=== PATIENT | female | born 2000 | race Caucasian/White ===

== ENCOUNTER 2019-11-05 12:39 | Emergency (ER) | payer OTHER, SELFPAY ==
--- NOTE | ~2019-11-05 | XR_ITS ---
EXAMINATION: XR ankle RT min 3V, XR foot RT min 3V DATE: 11/05/2019 13:15 INDICATION: Pain and swelling at the lateral right foot and ankle post fall TECHNIQUE: 1. Anteroposterior, mortise, additional oblique and lateral view of the right ankle were obtained. 2. Dorsoplantar, two oblique and lateral views of the right foot were obtained. COMPARISON: None. FINDINGS: Minimally displaced intra-articular fracture at the lateral base of the right fifth metatarsal. No ot her fractures identified. Alignment at the right foot and ankle appears otherwise normal. Joint space s are normal. No right ankle joint effusion. Prominent soft tissue swelling along the dorsal lateral aspect of the right midfoot. IMPRESSION: 1. Minimal displaced intra-articular fracture at the lateral base of the right fifth metatarsal. Reviewed, dictated and finalized at location A. IMPRESSION: 1. Minimal displaced intra-articular fracture at the lateral base of the right fifth metatarsal.
--- NOTE | 2019-11-05 12:58 | ED.EXTPRO ---
HPI - Extremity Problem General Chief complaint: Extremity Injury, Lower Stated complaint: possbile broken right foot Source: patient Mode of arrival: ambulatory Limitations: no limitations History of Present Illness HPI Narrative: 19 Y/O female with right foot and ankle pain that she rates at a 9/10 after she was helping family and she rolled he right foot causing severe pain and discomfort. The foot is swollen anteriorly with bruising, has a good pedal pulse and able to wiggle her toes. Feels mild numbness, with no other injuries. Came straight to the ER, did not take anything for pain prior to her arrival. Complaint: extremity pain and extremity swelling Onset (ago): hour(s) Pain Consistency: constant Location: right Severity scale (1-10): 9 Quality: sharp Radiation: none Relieving factors: cold therapy and rest Exacerbating factors: range of motion, weight bearing and walking Associated symptoms: denies other symptoms Related Data Allergies Allergy/AdvReac Type Severity Reaction Status Date / Time Penicillins Allergy Unknown Verified 11/30/16 11:47 Review of Systems Review of Systems: All systems reviewed & are unremarkable except as noted in HPI and below PMFSH Past Medical History Medical History Patient denies medical problems Family History Family History Other Family history of arthritis Hypertension Social History Social History Smoking status: Never smoker Exam Const: General: healthy appearing, no acute distress and alert Orientation/consciousness: patient oriented x3 HENMT: Head: normal to inspection Eyes: Conjunctivae: conjunctivae normal Pupils: Equal, round and reactive pupils present EOM: EOMs intact bilaterally Neck: Neck: normal visual inspection and no lymphadenopathy Chest: Chest palpation & inspection: normal inspection of the chest Resp: Effort & Inspection: normal respiratory effort Auscultation: clear to auscultation bilaterally Cardio: Rate: regular rate Rhythm: regular rhythm GI: GI Palp: Yes Soft to palpation Percussion: Yes normal to percussion : General: Yes no CVA tenderness Back/Spine/Pelvis: Back: no CVA tenderness Skin: General skin exam: normal color Rashes: no rashes Neuro: General: patient oriented x3, moves all extremities and no meningeal signs Extrem: Other: right lateral foot with swelling and bruising with point tenderness with palpation Psych: Mental Status: mental status grossly normal Critical Care Time Critical Care Time Critical Care Time: No
[2019-11-05 12:59] VITALS: BP 141/75; PULSE 107; RESP 18; TEMP 37.4; O2SAT 98
[2019-11-05] MEDS: KETOROLAC (*BKC) 60 MG/2 ML VIAL IM (13:25)
[2019-11-05 14:08] VITALS: RESP 17
== END 2019-11-05 16:08 | disposition home or self-care (01) ==
PROVIDERS: Emergency Provider Emergency Medicine; PCP Physician Assistant
DX: S92.901A Unspecified fracture of right foot, initial encounter for closed fracture (principal); X58.XXXA Exposure to other specified factors, initial encounter
CPT/HCPCS: 73610; 73630; 96372; 99282; 99283; J1885

== ENCOUNTER 2022-01-13 22:07 | Emergency (ER) | payer OTHER, SELFPAY ==
--- NOTE | ~2022-01-13 | XR_ITS ---
XR ankle RT min 3V DATE: 01/13/2022 22:55 INDICATION: Fall, twisting ankle. Lateral swelling. Patient heard a pop. TECHNIQUE: 3 views COMPARISON: None FINDINGS: No fracture or dislocation of the ankle or disruption of the ankle mortise. No periosteal r eaction or bone destruction. There is minimal soft tissue swelling. IMPRESSION: No significant radiographic abnormality Reviewed, dictated and finalized at location A.
--- NOTE | ~2022-01-13 | XR_ITS ---
XR foot RT min 3V DATE: 01/13/2022 22:56 INDICATION: Fall, twisting ankle and foot. Lateral pain and swelling. Patient heard a pop. TECHNIQUE: 3 views COMPARISON: None FINDINGS: There is focal soft tissue swelling laterally over the base of the fifth metatarsal bone. T here are subtle small calcific or bony densities are noted at the lateral aspect of the base of the f ifth metatarsal bone. Consider possible small cortical avulsion fractures. Otherwise no fracture or dislocation, periosteal reaction or bone destruction is detected. IMPRESSION: Soft tissue swelling over the lateral aspect of the base of the fifth metatarsal bone. Po ssible very small cortical avulsion fractures of uncertain age at the lateral base of the fifth metat arsal bone. Reviewed, dictated and finalized at location A. IMPRESSION: Soft tissue swelling over the lateral aspect of the base of the fif th metatarsal bone. Possible very small cortical avulsion fractures of uncertai n age at the lateral base of the fifth metatarsal bone.
[2022-01-13 22:15] VITALS: BP 134/87; PULSE 115; RESP 18; TEMP 36.6; O2SAT 97
--- NOTE | 2022-01-13 22:22 | ED.LOWEXIN ---
HPI - Extremity Injury (Lower) General Chief Complaint: Extremity Injury, Lower Stated Complaint: right foot pain Time Seen by Provider: 01/13/22 22:22 Source: patient Mode of arrival: wheelchair History of Present Illness HPI Narrative: 21-year-old female with a history of hypertension, dyslipidemia previous fracture base of right metatarsal bone in 2019 fell today and presents to the ER -- pain right ankle -- pain and swelling over the right midfoot unable to bear weight no head injury or loss of consciousness. No other injuries. MD complaint: ankle injury and foot injury Onset (ago): minute(s) ( 30 minutes ago) Injury: Right: ankle and foot Type of Injury: blunt Place: home Severity: severe Relieving factors: nothing Exacerbating factors: movement Context: fall Other symptoms: none Related Data Home Medications Medication Instructions Recorded Confirmed lisinopril 10 mg tablet 10 mg PO DAILY 11/05/19 01/13/22 norgestimate-ethinyl estradiol 1 tablet PO DAILY 11/05/19 01/13/22 0.18 mg/0.215mg/0.25mg-35 mcg(28)tablet (Tri-Previfem (28)) Allergies Allergy/AdvReac Type Severity Reaction Status Date / Time Penicillins Allergy Unknown Unknown Verified 01/13/22 22:26 Review of Systems Review of Systems: All systems reviewed & are unremarkable except as noted in HPI and below Constitutional: Constitutional: Reports as per HPI and Reports no additional constitutional complaints Eyes: Eyes: Reports as per HPI and Reports no additional eye complaints ENT: Reports system reviewed and no additional complaints, except as documented and Reports as per HPI Cardiovascular: Cardiovascular: Reports as per HPI and Reports no additional cardiovascular complaints Respiratory: Respiratory: Reports as per HPI and Reports no additional respiratory complaints Gastrointestinal: Gastrointestinal: Reports as per HPI and Reports no additional gastrointestinal complaints Genitourinary: Genitourinary: Reports no additional female genitourinary complaints and Reports as per HPI Musculoskeletal: Musculoskeletal: Reports no additional musculoskeletal complaints and Reports as per HPI Comments: right foot and ankle pain. 2 cm swelling over the right midfoot Integumentary/Breasts: Skin/Breast: Reports system reviewed and no additional complaints, except as docu and Reports as per HPI Neurologic: Reports system reviewed and no additional complaints, except as documented and Reports as per HPI Psychiatric: Psychiatric: Reports no additional psychiatric complaints and Reports as per HPI Endocrine: Endocrine: Reports no additional endocrine complaints and Reports as per HPI Hematologic/Lymphatic: Hematologic/Lymphatic: Reports no additional hematologic/lymphatic complaints and Reports as per HPI Allergic/Immunologic: Allergic/Immunologic: Reports no additional allergic/immunologic complaints and Reports as per HPI [facility] Past Medical History Medical History (Updated 01/13/22 @ 23:03 by Jason Paredes MD) Patient denies medical problems Family History Family History Other Family history of arthritis Hypertension Social History Social History Smoking status: Never smoker Exam Const: General: healthy appearing Nutritional Appearance: well nourished Orientation/consciousness: patient oriented x3 Limitations: no limitations HENMT: Head: normal to inspection Ears: external ears normal General nose exam: Normal external nose present Face and sinus: normal facial exam Mouth: Yes Normal oral and palatal mucosa present Throat: posterior oropharynx normal Eyes: Conjunctivae: conjunctivae normal Pupils: Equal, round and reactive pupils present EOM: EOMs intact bilaterally Direct Ophthalmoscopy: no photophobia Neck: Neck: normal visual inspection and no meningeal signs Chest: Chest palpation &
[2022-01-13 22:33] VITALS: BP 142/68; PULSE 101; RESP 16; O2SAT 98
[2022-01-13] MEDS: ONDANSETRON HCL ODT 4 MG TABLET PO (23:04)
[2022-01-13] MEDS: HYDROmorphone HCL INJ (*CRX) 2 MG/ML VIAL 0.5 MG IM (23:07)
== END 2022-01-13 23:40 | disposition home or self-care (01) ==
PROVIDERS: Emergency Provider Internal Medicine Critical Care Medicine; PCP Physician Assistant
DX: S93.401A Sprain of unspecified ligament of right ankle, initial encounter (principal); S93.601A Unspecified sprain of right foot, initial encounter; W19.XXXA Unspecified fall, initial encounter
CPT/HCPCS: 29515; 73610; 73630; 96372; 99283; A9270; J1170; L4350

== ENCOUNTER 2022-07-10 19:14 | Emergency (ER) | payer OTHER, SELFPAY ==
--- NOTE | ~2022-07-10 | XR_ITS ---
EXAM: XR abdomen/kub 1V DATE: 07/10/2022 19:55 HISTORY: constipation and generalized abdominal pain for 1 week . COMPARISON: None available. FINDINGS: Partially visualized right femoral fixation hardware Clear lung bases. The rectum is dilate d up to 7.2 cm by formed stool, otherwise normal bowel gas pattern. No organomegaly. No abnormal abdo josie calcification. Regional bones and soft tissues normal for age. IMPRESSION: Possible fecal impaction. Reviewed, dictated and finalized at location K. 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
[2022-07-10 19:15] VITALS: BP 152/104; PULSE 108; RESP 18; TEMP 37.1; O2SAT 97
[2022-07-10 19:28] VITALS: BP 152/104; PULSE 106; RESP 12; TEMP 37.1; O2SAT 98
--- NOTE | 2022-07-10 19:56 | ED.ABDPAIN ---
HPI - Abdominal Pain General Chief Complaint: Abdominal Pain Stated Complaint: sharp pains in stomach, no bowel movement for week Time Seen by Provider: 07/10/22 19:23 Source: patient and RN notes reviewed Mode of arrival: ambulatory Limitations: no limitations History of Present Illness HPI narrative: patient states she has been intermittently constipated for the last week. She had a little bowel movement 2 days ago otherwise no bowel movement last 2 days prior that she is had only small results. She began having some abdominal cramping in her lower pelvis approximately 30 minutes prior to arrival. MD elicited complaint: abdominal pain Pertinent past history: constipation Onset (ago): week(s) (1) Pain Consistency: intermittent Location: pelvis Severity: moderate Quality: cramping Radiation: none Migration to: no migration Exacerbating factors: eating Relieving factors: nothing Associated symptoms: nausea Related Data Home Medications Medication Instructions Recorded Confirmed lisinopril 10 mg tablet 10 mg PO DAILY 11/05/19 07/10/22 aripiprazole 10 mg tablet 10 mg PO DAILY 07/10/22 07/10/22 Allergies Allergy/AdvReac Type Severity Reaction Status Date / Time Penicillins Allergy Unknown Unknown Verified 07/10/22 19:26 Review of Systems Review of Systems: All systems reviewed & are unremarkable except as noted in HPI and below Constitutional: Constitutional: Denies chills and Denies fever(s) Gastrointestinal: Gastrointestinal: Denies diarrhea and Denies vomiting PMFSH Past Medical History Medical History (Updated 07/10/22 @ 20:26 by Carlos Cordoba MD) Hypertension Morbid obesity Schizophrenia Surgical History Surgical History (Updated 07/10/22 @ 19:59 by Carlos Cordoba MD) History of bilateral tubal ligation History of orthopedic surgery femur following fracture Family History Family History Other Family history of arthritis Hypertension Social History Social History Smoking status: Never smoker Exam Const: General: healthy appearing, no acute distress and alert Nutritional Appearance: well nourished and obese morbidly obese Orientation/consciousness: patient oriented x3 Limitations: no limitations Other: Female tech in room during examination. HENMT: Head: normal to inspection Ears: external ears normal Eyes: Conjunctivae: conjunctivae normal Pupils: Equal, round and reactive pupils present EOM: EOMs intact bilaterally Neck: Neck: normal visual inspection Resp: Effort & Inspection: normal respiratory effort Auscultation: clear to auscultation bilaterally Cardio: Rate: regular rate Rhythm: regular rhythm GI: GI Palp: Yes Soft to palpation, Yes Tenderness to palpation present (GI) ( Mild diffusely), No Guarding due to palpation present (GI) and No Rebound tenderness present Auscultation: normal bowel sounds Back/Spine/Pelvis: Cervical Spine: cervical ROM normal Thoracic/Lumbar Spine: thoraco-lumbar ROM normal Skin: General skin exam: normal color Rashes: no rashes Neuro: General: patient oriented x3, moves all extremities, no focal motor deficits and CN's II-XI intact bilaterally Speech: normal speech Gait exam (Neuro): Normal gait present Extrem: General: normal to inspection and no clubbing, cyanosis or edema Psych: Mental Status: mental status grossly normal Affect: normal affect Attitude: cooperative Course Course Emergency Course: I offered patient soapsuds enemas verses home and getting magnesium citrate [id number] and a rectal suppository. She initially chose soapsuds enemas but then came out and said she changed her mind would like to go home and try the [id number] and prescription medicine. Vital Signs Vital signs: Vital Signs Temperature 37.1 C 07/10/22 19:15 Pulse Rate 108 H 07/10/22 19:15 Respiratory Rate 18
--- NOTE | 2022-07-10 20:26 | PC.NURSE ---
present in room while Dr. Cordoba did physical exam
[2022-07-10 20:40] VITALS: BP 148/80; PULSE 82; RESP 16; TEMP 36.8; O2SAT 97
== END 2022-07-10 20:50 | disposition home or self-care (01) ==
PROVIDERS: Emergency Provider Emergency Medicine; PCP Physician Assistant
DX: K59.00 Constipation, unspecified (principal); I10 Essential (primary) hypertension; F20.9 Schizophrenia, unspecified; E66.01 Morbid (severe) obesity due to excess calories; Z68.42 Body mass index [BMI] 45.0-49.9, adult
CPT/HCPCS: 74018; 99283

== ENCOUNTER 2022-11-19 17:42 | Emergency (ER) | payer OTHER, SELFPAY ==
--- NOTE | ~2022-11-19 | XR_ITS ---
EXAM: XR ankle RT min 3V, XR foot RT min 3V DATE: 11/19/2022 18:18 (accession [id number]), 11/19/2022 18:17 (accession [id number]) HISTORY: STATUS POST FALL DOWN STEPS; RIGHT LATERAL ANKLE PAIN. . COMPARISON: None available. FINDINGS: Normal mineralization. Enthesopathy at the base of the fifth metatarsal. Small fracture fr agment versus tendon calcification overlying the tuberosity. Otherwise, no acute fracture or dislocat ion. No lytic or blastic lesion. Joint spaces are maintained. No erosion or periosteal change. Soft t issue swelling over the fifth metatarsal base. IMPRESSION: Small peroneal tendon avulsion fracture at the base of fifth metatarsal versus chronic te ndonitis, correlate with point tenderness and history of chronic versus acute pain. Reviewed, dictated and finalized at [facility] K. IMPRESSION: Small peroneal tendon avulsion fracture at the base of fifth metata rsal versus chronic tendonitis, correlate with point tenderness and history of chronic versus acute pain.
[2022-11-19 17:45] VITALS: BP 151/93; PULSE 102; RESP 18; TEMP 36.3; O2SAT 97
--- NOTE | 2022-11-19 17:59 | ED.LOWEXIN ---
HPI - Extremity Injury (Lower) General Chief Complaint: Extremity Injury, Lower Stated Complaint: R foot injury/fall Time Seen by Provider: 11/19/22 17:55 Source: patient Mode of arrival: ambulatory Limitations: no limitations History of Present Illness HPI Narrative: 22-year-old white female missed a step and dropped a couple of feet on the steps and twisted her right ankle and foot. She felt a pop, and has had swelling over the lateral ankle and over the 4th and 5th metatarsals. No other injury Related Data Home Medications Medication Instructions Recorded Confirmed lisinopril 10 mg tablet 10 mg PO DAILY 11/05/19 11/19/22 aripiprazole 10 mg tablet (Abilify) 10 mg PO DAILY 07/10/22 11/19/22 Allergies Allergy/AdvReac Type Severity Reaction Status Date / Time Penicillins Allergy Unknown Hives Verified 11/19/22 17:53 Review of Systems Review of Systems: All systems reviewed & are unremarkable except as noted in HPI and below (HPI) PMFSH Past Medical History Medical History Hypertension Morbid obesity Schizophrenia Surgical History Surgical History History of bilateral tubal ligation History of orthopedic surgery femur following fracture Family History Family History Other Family history of arthritis Hypertension Social History Social History Smoking status: Never smoker Exam Const: General: healthy appearing Nutritional Appearance: obese Orientation/consciousness: patient oriented x3 Limitations: no limitations HENMT: Head: normal to inspection Ears: external ears normal Face and sinus: normal facial exam Eyes: Conjunctivae: conjunctivae normal Pupils: Equal, round and reactive pupils present EOM: EOMs intact bilaterally Neck: Neck: normal visual inspection Resp: Effort & Inspection: normal respiratory effort Skin: General skin exam: normal color Neuro: General: patient oriented x3 Speech: normal speech Gait exam (Neuro): Normal gait present Extrem: General: normal to inspection Other: EXCEPT THERE IS MARKED TENDERNESS ON PALPATION OF THE RIGHT ANKLE OVER THE LATERAL MALLEOLUS, AND THE ANTERIOR AND POSTERIOR TALOFIBULAR LIGAMENTS. PAIN INCREASES ON MOVEMENT OF THE ANKLE. SHE ALSO HAS SOME TENDERNESS OVER THE MEDIAL MALLEOLUS, AND THE POSTERIOR TALAR TIBIAL LIGAMENT. SHE HAS MARKED SWELLING OVER THE PROXIMAL 4TH AND 5TH METATARSALS. THAT AREA IS MARKEDLY TENDER. DISTAL DURAN TARSALS ARE NONTENDER, TOES ARE NONTENDER. DISTAL NEUROVASCULAR IS INTACT Psych: Mental Status: mental status grossly normal Affect: normal affect Attitude: cooperative Course Course Emergency Course: X-RAYS WERE OBTAINED OF THE ANKLE AND FOOT SHOWS A VERY SMALL AVULSION FRACTURE OFF THE BASE OF THE 5TH METATARSAL. JULISSA WRAP WAS APPLIED AND SHE WAS PLACED IN A WALKING BOOT ICE, ELEVATED, IBUPROFEN 600 MG Q.8 NEEDED FOLLOW-UP WITH ORTHOPEDICS AT [facility] IN [place] 1 week Vital Signs Vital signs: Vital Signs Temperature 36.3 C L 11/19/22 17:45 Pulse Rate 102 H 11/19/22 17:45 Respiratory Rate 18 11/19/22 17:45 Blood Pressure 151/93 H 11/19/22 17:45 Pulse Oximetry 97 11/19/22 17:45 Oxygen Delivery Room Air 11/19/22 17:45 Temperature 36.3 C L 11/19/22 17:45 Pulse Rate 102 H 11/19/22 17:45 Respiratory Rate 18 11/19/22 17:45 Blood Pressure 151/93 H 11/19/22 17:45 Pulse Oximetry 97 11/19/22 17:45 Oxygen Delivery Room Air 11/19/22 17:45 Discharge Plan Discharge Clinical Impression: Ankle sprain and strain, Metatarsal bone fracture Patient Disposition: Home, Self-Care Condition: Stable Instructions: Antibiotic Form Additional Instructions: Tylenol as needed for pain ibuprofen 600 mg every 6-8 hours as
[2022-11-19 18:51] VITALS: BP 147/84; PULSE 81; RESP 20; O2SAT 99
== END 2022-11-19 18:56 | disposition home or self-care (01) ==
PROVIDERS: Emergency Provider Emergency Medicine; PCP Physician Assistant
DX: S92.351A Displaced fracture of fifth metatarsal bone, right foot, initial encounter for closed fracture (principal); S93.401A Sprain of unspecified ligament of right ankle, initial encounter; W10.9XXA Fall (on) (from) unspecified stairs and steps, initial encounter; I10 Essential (primary) hypertension; F20.9 Schizophrenia, unspecified; E66.01 Morbid (severe) obesity due to excess calories; Z68.42 Body mass index [BMI] 45.0-49.9, adult
CPT/HCPCS: 73610; 73630; 99284; L2112

== ENCOUNTER 2023-07-04 11:12 | Emergency (ER) | payer OTHER, SELFPAY ==
[2023-07-04 11:15] VITALS: BP 145/93; PULSE 98; RESP 16; TEMP 36.3; O2SAT 98
[2023-07-04] MEDS: ACETAMINOPHEN 500 MG TABLET 1000 MG PO (11:39)
[2023-07-04 11:41] LABS: Appearance Urine Clear (Clear); Bilirubin Urine 1+ (Negative); Blood Urine Negative (Negative); Color Urine Yellow (Yellow); Glucose Urine UA Negative (Negative); Ketones Urine Negative (Negative); Leukocyte Esterase Ur Negative (Negative); Nitrate Urine Negative (Negative); Protein Urine Negative (Negative); Specific Grav Ur 1.025 (1.010-1.020)
[2023-07-04 11:42] LABS: Pregnancy On Board Control Positive; Urine Pregnancy Test Negative
[2023-07-04 11:46] LABS: Add Urine Microscopic? YES; Bacteria Urine Trace /hpf; RBC Urine None seen /hpf (0-2); Squamous Epithelial Cell Urine Moderate /hpf (Few); WBC Urine None seen /hpf (0-3)
--- NOTE | 2023-07-04 11:59 | ED.LOWEXIN ---
HPI - Extremity Injury (Lower) General Chief Complaint: Extremity Injury, Lower Stated Complaint: LEG NUMBNESS Time Seen by Provider: 07/04/23 11:14 Source: patient Mode of arrival: ambulatory Limitations: no limitations History of Present Illness HPI Narrative: this is a 22-year-old female who presents with some sciatic pain radiating her left leg and into her foot with no injury no saddle paresthesias no fever chills currently not having back pain patient states that she did take some Tylenol couple of days ago with minimal relief but has not take anything recently. Otherwise no shortness of breath no chest pain no dysuria. 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 Onset (ago): day(s) Related Data Home Medications Medication Instructions Recorded Confirmed lisinopril 10 mg tablet 10 mg PO DAILY 11/05/19 07/04/23 aripiprazole 10 mg tablet (Abilify) 10 mg PO DAILY 07/10/22 07/04/23 Allergies Allergy/AdvReac Type Severity Reaction Status Date / Time Penicillins Allergy Unknown Hives Verified 07/04/23 11:25 Review of Systems Review of Systems: All systems reviewed & are unremarkable except as noted in HPI and below PMFSH Past Medical History Medical History Hypertension Morbid obesity Schizophrenia Surgical History Surgical History History of bilateral tubal ligation History of orthopedic surgery femur following fracture Family History Family History Other Family history of arthritis Hypertension Social History Social History Smoking status: Never smoker Exam Const: General: healthy appearing, no acute distress and alert Nutritional Appearance: well nourished Limitations: no limitations Resp: Effort & Inspection: normal respiratory effort Auscultation: clear to auscultation bilaterally Cardio: Rate: regular rate Rhythm: regular rhythm GI: GI Palp: Yes Soft to palpation Auscultation: normal bowel sounds Neuro: General: patient oriented x3, moves all extremities, no meningeal signs and no focal motor deficits Extrem: Other: Sciatica radiating down her left leg with a positive straight leg raising test on the left. Course Course Emergency Course: Patient had urinalysis and hCG performed which were both negative, patient received a g of Tylenol and which has helped her pain, will send medication to her local pharmacy and advised patient to follow-up with her primary Vital Signs Vital signs: Vital Signs Temperature 36.3 C L 07/04/23 11:15 Pulse Rate 98 07/04/23 11:15 Respiratory Rate 16 07/04/23 11:15 Blood Pressure 145/93 H 07/04/23 11:15 Pulse Oximetry 98 07/04/23 11:15 Oxygen Delivery Room Air 07/04/23 11:15 Temperature 36.3 C L 07/04/23 11:15 Pulse Rate 98 07/04/23 11:15 Respiratory Rate 16 07/04/23 11:15 Blood Pressure 145/93 H 07/04/23 11:15 Pulse Oximetry 98 07/04/23 11:15 Oxygen Delivery Room Air 07/04/23 11:15 MDM - Extremity Injury (Lower) Lab Data Labs: Lab Results 07/04/23 Range/Units 11:39 Urine Color Yellow (Yellow) Urine Appearance Clear (Clear) Urine pH 6.0 (5.0-8.0) Ur Specific [place] 1.025 H (1.010-1.020) Urine Protein Negative (Negative) Urine Glucose (UA) Negative (Negative) Urine Ketones Negative (Negative) Ur Blood (Man) Negative (Negative) Urine Nitrate Negative (Negative) Urine Bilirubin 1+ H (Negative) Urine Urobilinogen 1.0 (0.2-1.0) mg/dL Ur Leukocyte Esterase Negative (Negative) Urine RBC None seen (0-2) /hpf Urine WBC None seen (0-3) /hpf Ur Squamous Epith Cells Moderate H (Few) /hpf Urine Bacteria Tr
== END 2023-07-04 12:10 | disposition home or self-care (01) ==
PROVIDERS: Emergency Provider Emergency Medicine; PCP Physician Assistant
DX: M54.30 Sciatica, unspecified side (principal); I10 Essential (primary) hypertension; Z79.899 Other long term (current) drug therapy
CPT/HCPCS: 81001; 81025; 99283

== ENCOUNTER 2023-10-30 08:21 | Emergency (ER) | payer OTHER, SELFPAY ==
--- NOTE | ~2023-10-30 | XR_ITS ---
EXAMINATION: [id number] DATE: 10/30/2023 10:15 INDICATION: Left chest pain. TECHNIQUE: A frontal view of the chest and 2 views on 4 radiographs of the left ribs were obtained. COMPARISON: None. FINDINGS: There is no pneumonia, pleural effusion, or pneumothorax. The heart size is normal. IMPRESSION: 1. No rib fracture. Reviewed, dictated and finalized at location A. IMPRESSION: 1. No rib fracture.
[2023-10-30 08:22] VITALS: BP 133/94; PULSE 109; RESP 18; TEMP 37; O2SAT 97
--- NOTE | 2023-10-30 09:19 | ED.CHESTPAIN ---
HPI - Chest Pain General Chief Complaint: Back Pain/Injury Stated Complaint: back pain Source: patient Mode of arrival: ambulatory Limitations: no limitations History of Present Illness HPI narrative: 23-year-old female with a history of schizophrenia,hypertension, dyslipidemia presents to the ER with a 2 day history of -- left posterior chest wall pain. No history of trauma. Chest pain is made worse by coughing or deep breathing -- The patient is a smoker and has had recent cough. No shortness of breath. MD complaint: chest pain Onset (ago): day(s) ( 2 days) Timing of current episode: constant Prior episodes: No Onset: during rest Pain location: posterior Pain radiation: none Severity: moderate Quality: aching and sharp Relieving factors: nothing Exacerbating factors: movement Risk Factors Coronary artery disease risk factors: hyperlipidemia and hypertension Related Data On Oral Contraceptives: No Home Medications Medication Instructions Recorded Confirmed lisinopril 10 mg tablet 10 mg PO DAILY 11/05/19 07/04/23 aripiprazole 10 mg tablet (Abilify) 10 mg PO DAILY 07/10/22 07/04/23 Allergies Allergy/AdvReac Type Severity Reaction Status Date / Time Penicillins Allergy Unknown Hives Verified 07/04/23 11:25 Review of Systems Review of Systems: All systems reviewed & are unremarkable except as noted in HPI and below Constitutional: Constitutional: Reports as per HPI and Reports no additional constitutional complaints Eyes: Eyes: Reports as per HPI and Reports no additional eye complaints ENT: Reports system reviewed and no additional complaints, except as documented and Reports as per HPI Cardiovascular: Cardiovascular: Reports as per HPI and Reports no additional cardiovascular complaints Respiratory: Respiratory: Reports as per HPI and Reports no additional respiratory complaints Comments: right posterior chest wall pain. Pain is over the location of the latissimus dorsi Gastrointestinal: Gastrointestinal: Reports as per HPI and Reports no additional gastrointestinal complaints Genitourinary: Genitourinary: Reports no additional female genitourinary complaints Musculoskeletal: Musculoskeletal: Reports no additional musculoskeletal complaints Comments: posterior chest wall pain which is made worse by deep breathing or coughing Integumentary/Breasts: Skin/Breast: Reports system reviewed and no additional complaints, except as docu and Reports as per HPI Neurologic: Reports system reviewed and no additional complaints, except as documented and Reports as per HPI Psychiatric: Psychiatric: Reports no additional psychiatric complaints and Reports as per HPI Endocrine: Endocrine: Reports no additional endocrine complaints and Reports as per HPI Hematologic/Lymphatic: Hematologic/Lymphatic: Reports no additional hematologic/lymphatic complaints and Reports as per HPI Allergic/Immunologic: Allergic/Immunologic: Reports no additional allergic/immunologic complaints and Reports as per HPI PMFSH Past Medical History Medical History Hypertension Morbid obesity Schizophrenia Surgical History Surgical History History of bilateral tubal ligation History of orthopedic surgery femur following fracture Family History Family History Other Family history of arthritis Hypertension Social History Social History Smoking status: Never smoker Exam Narrative: blood pressure 133/94. Heart rate of 109. Oxygen saturation of 97% on room air with a respiratory rate of 18. Const: General: healthy appearing, no acute distress and alert Nutritional Appearance: well nourished Orientation/consciousness: patient oriented x3 Limitations: no limitations HENMT: Head: no
[2023-10-30 09:39] LABS: Pregnancy On Board Control Positive; Urine Pregnancy Test Negative
[2023-10-30] MEDS: IPRATROPIUM 0.5 MG/ALBUTEROL SULFATE 2.5 MG AMPUL.NEB 3 ML INHALATION (10:38)
[2023-10-30 10:40] VITALS: PULSE 84; RESP 20; O2SAT 98
[2023-10-30] MEDS: KETOROLAC 30 MG/ML VIAL (*BKC) IM (10:40)
[2023-10-30 11:02] VITALS: BP 135/81; PULSE 94; RESP 20; TEMP 36.9; O2SAT 100
== END 2023-10-30 11:02 | disposition home or self-care (01) ==
PROVIDERS: Emergency Provider Internal Medicine Critical Care Medicine; PCP Physician Assistant
DX: R07.89 Other chest pain (principal); J98.01 Acute bronchospasm; I10 Essential (primary) hypertension; E78.5 Hyperlipidemia, unspecified; F20.9 Schizophrenia, unspecified
CPT/HCPCS: 71101; 81025; 94640; 96372; 99283; J1885

== ENCOUNTER 2024-04-12 12:25 | Emergency (ER) | payer OTHER, SELFPAY ==
[2024-04-12] VITALS (22 sets, daily range): BP systolic 113–142; BP diastolic 76–95; PULSE 90–111; RESP 15–22; TEMP 36.5; O2SAT 97–100
--- NOTE | ~2024-04-12 | XR_ITS ---
EXAMINATION: XR chest 1V portable DATE: 04/12/2024 12:52 INDICATION: Chest pain. TECHNIQUE: A single frontal view of the chest was obtained. COMPARISON: Chest single view 03/15/2019 FINDINGS: There is no pneumonia, pleural effusion, or pneumothorax. The heart size is normal. IMPRESSION: 1. No acute cardiopulmonary disease. Reviewed, dictated and finalized at location A.
--- NOTE | 2024-04-12 12:32 | ED.CHESTPAIN ---
HPI - Chest Pain General Chief Complaint: Chest Pain Stated Complaint: short of breathe Time Seen by Provider: 04/12/24 12:31 Source: patient Mode of arrival: ambulatory Limitations: no limitations History of Present Illness HPI narrative: 23-year-old white female complains of chest pain. patient has a history of hypertension schizophrenia posttraumatic stress disorder anxiety and depression. Last night she smoked marijuana around 8:00 p.m. and also she smoked methamphetamine. She also smoked marijuana this morning. She woke up this morning around 730 and took her lisinopril and rest per Jonas's and then around 830 started having retrosternal chest pain has been constant pressure sensation 6 to 7/10 associated with some shortness of breath diaphoresis. She has not had this pain before she did not take any for pain. She felt a little dizzy coming into the emergency department. But is not dizzy now. Denies any swelling lumps or bumps bleeding or bruising weakness she felt numb numb all over her body this morning lasting 3 minutes which comes and goes. Not have any history of heart disease lung disease venous thromboembolism. She is eating and drinking voiding and stooling fine without any nausea vomiting or diarrhea problems walking talking seeing or hearing cough runny nose or any other complaints. Patient denies any alcohol use And she vapes. Related Data Home Medications Medication Instructions Recorded Confirmed lisinopril 10 mg tablet 10 mg PO DAILY 11/05/19 07/04/23 aripiprazole 10 mg tablet (Abilify) 10 mg PO DAILY 07/10/22 07/04/23 Allergies Allergy/AdvReac Type Severity Reaction Status Date / Time Penicillins Allergy Unknown Hives Verified 03/18/24 16:27 Review of Systems Review of Systems: All systems reviewed & are unremarkable except as noted in HPI and below PMFSH Past Medical History Medical History Hypertension Morbid obesity Schizophrenia Surgical History Surgical History History of bilateral tubal ligation History of orthopedic surgery femur following fracture Family History Family History Other Family history of arthritis Hypertension Social History Social History (System 03/18/24 @ 16:27 by Kurt Lynn) Smoking status: Never smoker Exam Narrative: White female patient with no apparent distress.? Head normocephalic, atraumatic.? Eyes conjunctiva pink sclera nonicteric.? Extraocular movements are intact.? Ears externally normal.? Oropharynx is clear with moist mucous membranes without exudates.? Neck is supple nontender no lymphadenopathy.? Back is nontender.? Lungs are clear.? Heart is regular rate and rhythm without murmurs gallops or rubs.? Chest wall nontender. Abdomen is soft and nontender no hepatosplenomegaly or masses no CVA tenderness no abdominal bruits.? Extremities no cyanosis clubbing or edema.? Skin is warm and dry without rashes or lesions.? Neurological patient is alert and oriented x4.? Motor and sensory grossly intact.? Gait is normal. Course Vital Signs Vital signs: Vital Signs Oxygen Delivery Room Air 04/12/24 12:25 Temperature 36.5 C 04/12/24 12:27 Pulse Rate 110 H 04/12/24 15:16 Respiratory Rate 18 04/12/24 15:16 Blood Pressure 129/86 04/12/24 15:15 Pulse Oximetry 99 04/12/24 15:16 Oxygen Delivery Room Air 04/12/24 15:16 MDM - Chest Pain MDM Narrative Medical decision making narrative: Patient was placed in Room # 4 with her History and physical was performed. 23-year-old white female with history of hypertension use meth last night and marijuana also today started having chest pain this morning 5-1/2 hours ago associated with shortness of breath diaphoresis normal chest x-ray per radiologist . Normal lipase magnesium E
--- NOTE | 2024-04-12 12:33 | ECG_ITS ---
Test Date: 2024-04-12 12:41:56 Measurements Intervals [place] Rate: 100 P: 38 WA: 157 QRS: 2 QRSD: 99 T: 20 QT: 316 QTc: 408 Interpretive Statements SINUS TACHYCARDIA WITH OCCASIONAL VENTRICULAR PREMATURE COMPLEXES INCOMPLETE RIGHT BUNDLE BRANCH BLOCK [90+ ms QRS DURATION, TERMINAL R IN V1/V2, 40+ ms S IN I/aVL/V4/V5/V6] No previous ECG available for comparison Electronically Signed On 04-14-2024 11:56:56 CDT by Tanja Alfaro M.D.
[2024-04-12 13:10] LABS: Hemoglobin 15.1 g/dL (12.0-15.0); Mean Corpuscular HGB Conc 35.1 g/dL (32-36); Mean Corpuscular Hemoglobin 31.8 pg (27.0-31.0); Mean Corpuscular Volume 90.5 fL (78.0-102.0); Mean Platelet Volume 9.4 fl (9.2-11.8); Platelet Count Result 327 K/mm3 (150-420); Red Blood Count 4.75 M/mm3 (4.20-5.40); Red Cell Distribution Width 11.6 % (11.6-14.4); White Blood Count 11.5 K/mm3 (4.8-10.8)
[2024-04-12 13:27] LABS: Amphetamine Screen Urine Positive (Negative); Benzodiazepines Screen Urine Negative (Negative); Cannabinoid Screen Urine Positive (Negative); Cocaine Screen Urine Negative (Negative); Methadone Screen Urine Negative (Negative); Opiate Screen Urine Negative (Negative); Phencyclidine Screen Urine Negative (Negative)
[2024-04-12 13:30] LABS: D Dimer 0.27 mg/L (0.19-0.50); Prothrombin Time 10.9 Seconds (9.50-12.1)
[2024-04-12 13:37] LABS: Alanine Aminotransferase 42 U/L (14-59); Albumin Level 3.8 g/dL (3.4-5.0); Alkaline Phosphatase 87 U/L (46-116); Anion Gap 11 mmol/L (4-12); Aspartate Amino Transferase 26 U/L (15-37); Bilirubin,Total 0.6 mg/dL (0.00-1.00); Blood Urea Nitrogen 7 mg/dL (7-18); Calcium 9.5 mg/dL (8.5-10.1); Carbon Dioxide 27 mmol/L (21-32); Chloride 102 mmol/L (98-108); Estimated CRCL calculation 111 ml/min; Estimated Glomerular Filt Rate > 60; Glucose 105 mg/dL (70-99); Magnesium 2.1 mg/dL (1.8-2.4); Osmolality Calculated 288 mOsm/kg (285-295); Potassium 3.7 mmol/L (3.5-5.1); Sodium 140 mmol/L (136-145); Total Protein 7.9 g/dL (6.4-8.2); Troponin I 4.1 ng/L (0.00-60.4)
[2024-04-12 13:38] LABS: Ethanol < 3 mg/dL (0-6); Lipase < 6 U/L (16-77)
[2024-04-12 15:03] LABS: Troponin I 4.3 ng/L (0.00-60.4)
== END 2024-04-12 15:31 | disposition home or self-care (01) ==
PROVIDERS: Emergency Provider Emergency Medicine; PCP Emergency Medicine
DX: R07.89 Other chest pain (principal); F15.10 Other stimulant abuse, uncomplicated; F12.10 Cannabis abuse, uncomplicated; I10 Essential (primary) hypertension; F20.9 Schizophrenia, unspecified
CPT/HCPCS: 36415; 71045; 80053; 80307; 82077; 83690; 83735; 84484; 85027; 85380; 85610; 85730; 93005; 99284

== ENCOUNTER 2024-09-14 19:59 | Emergency (ER) | payer OTHER, SELFPAY ==
[2024-09-14] VITALS (9 sets, daily range): BP systolic 135–157; BP diastolic 80–92; PULSE 87–99; RESP 18; TEMP 35.8–36.5; O2SAT 97–100
--- NOTE | ~2024-09-14 | XR_ITS ---
CHEST RADIOGRAPH CLINICAL HISTORY: CP tonight, no trauma . COMPARISON: 04/12/2024 TECHNIQUE: Single portable view of the chest. FINDINGS The cardiomediastinal silhouette is unremarkable. The lungs are clear. Visualized osseous structures and soft tissues are unremarkable. IMPRESSION: No focal infiltrate or effusion. Reviewed, dictated and finalized at location A.
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
--- OUTSIDE RECORDS SUMMARY | 2024-09-14 20:01 | XMS_ITS | Continuity of Care Document ---
Author Organization [facility] Address [address] [place] [address] Phone Care Team Providers Care Child Care Leader Name Role Phone Zenaida De La Rosa Unavailable Unavailable Allergies, Adverse Reactions, Alerts Substance Reaction Status Criticality PENICILLIN Hives(moderate)Hives(moderate) Active No Information Medications Medication Instructions Dosage Effective Dates (start - stop) Status Comments LISINOPRIL (unknown strength) take 1 tablet by oral route every day Not Available - Active Vitamin D2 1,250 mcg (50,000 unit) capsule - Active SERTRALINE HCL (unknown strength) take 1 tablet by oral route every day Not Available - Active LIPITOR (unknown strength) take 1 tablet by oral route every day Not Available - Active Procedures Procedure Date OFFICE/OUTPATIENT VISIT, [facility] Advance Directives Directive Yes / No Effective Date File Name No Information Encounters Encounter Description Practice Location Reason(s) For Visit Diagnoses Date Provider Providers Copied on Encounter OFFICE/OUTPAT IENT VISIT, [facility], [address] [place] [address], [facility], tel:[phone] Rock TEST (chief complaint) Negative test Rj Etsevez. [address] [place] [address], [facility], . tel:[phone] Family History Family Member Type Diagnosis Age At Onset Maternal grandmother Problem hypertension Paternal grandfather Problem hypertension Mother Problem malignant neoplasm of ovary Payers Payer name Insurance type Covered green party ID Authoriza tion(s) No Information Social History Type Description Quantity Date Captured Comments Alcohol Use Details No Caffeine Use Details coffee Tobacco Use Status Smoking Status Current every day smoker Non-Smoking Tobacco Use Details : No Details Available : No Details Available Sex Female Vital Signs Date / Time: Height Weight BMI Pulse Rate Blood Pressure Temperature Respiratory Rate Body Surface Area Head Circumference Head Circ. Percentile Wt./Sanjeev. Percentile BMI percentile Pulse Ox Inhaled Ox 1:03 PM 63.00 in 126.915 kg (279.80 lbs) 49.5 6 kg/m eter (2) 100 /min 128/72 mm[Hg] 97.90 F 20 /min 96 % 21 % Chief Complaint And Reason For Visit From encounter dated '09/01/2020 13:00'. TEST (chief complaint). Description: Pt presents today requesting a test. Pt states she has not taken an at home test yet. Pt's LMP was beginning of July. Pt states sheis sexually active without protection. Pt states she feels she has gained weight in the last month.Urine test in office is negative. Reason For Referral Reason For Referral No Information History Of Present Illness Encounter Date Complaint History Of Prese nt Illness TEST (comments) As sta neto. Patient denies any other concerns at this time. TEST Pt presents toda y requesting a test. Pt states she has not taken an at home test yet. Pt's LMP was beginning of July. Pt states she is sexually active without protection. Pt states she feels she has gained weight in the last month.Urine test in office is negative. Functional Status Date Functional Assessmen t No Information Instructions Date Instruction Additional Infor luz maria Recommend follow up with OB-POULTRY CUTTER for further concerns about becoming . Follow up with PCP regarding elevated PHQ-9. Denies SI/ HI today. Related to Negative test Assessments Type Assessment Date assessment Negative test 021 impression In office test negativ e. Mental Status Date Cognitive Assessment Orientation - [place] ed to time, place, person, situation. Patient Care Teams Name Effective Dates (start - stop) Status Members No Information
--- OUTSIDE RECORDS SUMMARY | 2024-09-14 20:01 | XMS_ITS | Encounter Summary ---
Author Organization [facility] Address [address] [place] [address] Care Team Providers Care Assembler Tractor Name Role Phone Deng Coffman Primary Care Provider [phone] Paul Jasso MD Primary Care Provider [phone] Sergo Mckeon MD Primary Care Provider [phone] Encounter Details Date Type Department Care Team (Late st Contact Info) Description 12/06/2018 Abstract [facility] CONVERSION [address] [place] [address] , Generic Conversion, Social History Tobacco Use Types Packs/Day Years Used Date Smoking Tobacco: Never Assessed Comments Unknown Sex and Gender Information Value Date Recorded Sex Assigned at Not on file 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 Gender Identity Not on file Sexual Orientation Not on file documented as of this encounter Plan of Treatment Not on file documented as of this encounter Visit Diagnoses Not on filedocumented in this encounter Care Teams Assembler Tractor Relationship Specialty Start Date End Date Deng Coffman PA [address] [place] [phone] PCP - General PHYSICIAN RV REPAIRER 11/09/19 04/17/20 Paul Jasso MD [address] [place] [phone] PCP - General FAMILY PRACTICE 04/18/20 05/23/21 Sergo Mckeon MD [address] [place] [phone] PCP - General FAMILY PRACTICE 05/24/21 documented as of this encounter
--- NOTE | 2024-09-14 20:13 | ED.GENADULT ---
HPI - General Adult General Chief complaint: Dizziness Stated complaint: chest pain nausea Time Seen by Provider: 09/14/24 20:13 Source: patient Mode of arrival: ambulatory Limitations: no limitations History of Present Illness HPI narrative: 24 YEARS OLD WHITE FEMALE CAME TO THE ED BY PRIVATE CAR BECAUSE OF CHEST PAIN AND DIZZINESS. HISTORY OF HYPERTENSION AND ANXIETY AND DEPRESSION DID NOT TAKE HER MEDICATION FOR THE LAST 2 MONTHS. PATIENT VAPES, DENIED DRINKING OR USING MARIJUANA. PATIENT DENIES ANY FEVER, CHILLS, NAUSEA, VOMITING, DIARRHEA, CONSTIPATION, RESPIRATORY SYMPTOMS. PATIENT WAS SITTING WATCHING TV SUDDEN ONSET OF CHEST PAIN AND DIZZINESS 1 HOUR PRIOR TO ARRIVAL, IN THE ED PATIENT HAVE NO CHEST PAIN ANY MORE, STILL HAVING LIGHT DIZZINESS. PATIENT REPORT HAVING SIMILAR SYMPTOMS IN THE PAST FOR UNKNOWN REASON. Related Data Home Medications ?Medication ?Instructions ?Recorded ?Confirmed ?Last Taken ?Type lisinopril 10 mg tablet 10 mg PO DAILY 11/05/19 07/04/23 11/19/22 History aripiprazole 10 mg tablet (Abilify) 10 mg PO DAILY 07/10/22 07/04/23 11/19/22 History Allergies Allergy/AdvReac Type Severity Reaction Status Date / Time Penicillins Allergy Unknown Hives Verified 03/18/24 16:27 Review of Systems Review of Systems: All systems reviewed & are unremarkable except as noted in HPI and below PMFSH Past Medical History Medical History Schizophrenia Morbid obesity Hypertension Surgical History Surgical History History of orthopedic surgery femur following fracture History of bilateral tubal ligation Family History Family History Other Family history of arthritis Hypertension Social History Social History Smoking status: Never smoker Exam Narrative: GENERAL APPEARANCE: WELL-DEVELOPED, WELL-NOURISHED SKIN: NORMAL COLOR HEAD: NORMOCEPHALIC, NONTRAUMATIC EYES: CLEAR CONJUNCTIVA ENT: OROPHARYNX NORMAL, EARS NORMAL, NOSE NORMAL NECK: SUPPLE, NONTENDER CHEST AND RESPIRATORY: AIRWAY PATENT, NO RESPIRATORY DISTRESS, NO ACCESSORY MUSCLE USE HEART: REGULAR RATE/RHYTHM ABDOMEN: SOFT, NONTENDER, NO ORGANOMEGALY, QUIET BOWEL SOUNDS VASCULAR: NORMAL PERIPHERAL PULSES, NORMAL CAPILLARY REFILL. MUSCULOSKELETAL: NORMAL RANGE OF MOTION, NONTENDER BACK NEUROLOGIC: ALERT AND ORIENTED ?3, MANUFACTURING AUTOMATION ENGINEER IS NORMAL TESTED, NO GROSS MOTOR DEFICIT Course Vital Signs Vital signs: Vital Signs Temperature 35.8 C L 09/14/24 20:00 Pulse Rate 99 09/14/24 20:00 Respiratory Rate 18 09/14/24 20:00 Blood Pressure 157/80 H 09/14/24 20:00 Pulse Oximetry 99 09/14/24 20:00 Oxygen Delivery Room Air 09/14/24 20:00 Temperature 35.8 C L 09/14/24 20:00 Pulse Rate 92 09/14/24 20:45 Respiratory Rate 18 09/14/24 20:43 Blood Pressure 135/92 H 09/14/24 20:43 Pulse Oximetry 99 09/14/24 20:45 Oxygen Delivery Room Air 09/14/24 20:43 Medical Decision Making MDM Narrative Medical decision making narrative: DIFFERENTIAL DIAGNOSIS INCLUDE ANXIETY, DEPRESSION, CHEST WALL PAIN, NONCOMPLIANCE WITH MEDICATIONS VITAL SIGNS ON ARRIVAL SHOWING BLOOD PRESSURE 157/80, TEMPERATURE 35.8? OTHERWISE WITHIN NORMAL LIMIT PHYSICAL EXAMINATION IS UNREMARKABLE BLOOD WORKUP TODAY INCLUDES CBC, CMP, TROPONIN SHOWED POTASSIUM 3.4 OTHERWISE INSIGNIFICANT ABNORMALITY CHEST X-RAY SHOWED WITHIN NORMAL LIMIT EKG ON ARRIVAL TO THE ED SHOWED NORMAL SINUS RHYTHM AT 87 BEATS PER MINUTE OTHERWISE WITHIN NORMAL LIMIT BLOOD PRESSURE IMPROVED AFTER 1 MG OF ATIVAN P.O.. DIAGNOSIS ANXIETY LIKE SYMPTOMS CAUSING ATYPICAL CHEST PAIN AND DIZZINESS SYMPTOM RESOLVED AFTER ATIVAN. PATIENT WAS ADVISED TO CALL HER FAMILY PHYSICIAN/ PSYCHIATRIST FOR FURTHER EVALUATION THE PT WAS DISCHARGED TO HOME.THE PT,S CONDITION UPON DISCHARGE WAS FAIR,EDUCATION WAS PROVIDED TO THE PT IN REFERENCE TO THE FINAL IMPRESSION,DISCHARGE STUDY RESULTS,TREATMENT,PROGNOSIS AND NEED FOR FOLLOW UP . Differential Diagnosis Differential Diagnosis: ABOVE Vital Signs Vital Signs: Vital Signs Temperature 35.8 C L 09/14/24 20:00 Pulse Rate 99 09/14/24 20:00 Respiratory Rate 18 09/14/24 20:00 Blood Pressure 157/80 H 09/14/24 20:00 Pulse Oximetry 99 09/14/24 20:00 Oxygen Delivery Room Air 09/14/24 20:00 Temperature 35.8 C L 09/14/24 20:00 Pulse Rate 92 09/14/24 20:45 Respiratory Rate 18 09/14/24 20:43 Blood Pressure 135/92 H 09/14/24 20:43 Pulse Oximetry 99 09/14/24 20:45 Oxygen Delivery Room Air 09/14/24 20:43 Lab Data 09/14/24 20:26 09/14/24 20:26 Labs: Lab Results 09/14/24 Range/Units 20:26 WBC 10.2 (4.8-10.8) K/mm3 RBC 4.58 (4.20-5.40) M/mm3 Hgb 13.9 (12.0-15.0) g/dL Hct 42.0 (35.0-49.0) % MCV 91.7 (78.0-102.0) fL MCH 30.3 (27.0-31.0) pg MCHC 33.1 (32-36) g/dL RDW 11.9 (11.6-14.4) % Plt Count 324 (150-420) K/mm3 MPV 9.4 (9.2-11.8) fl Immature Gran % (Auto) 0.3 H (0.0-0.0) % Neut % (Auto) 55.5 (50.0-70.0) % Lymph % (Auto) 36.4 (18.0-42.0) % [place] % (Auto) 5.7 (2.0-11.0) % Eos % (Auto) 1.7 (1.0-6.0) % Baso % (Auto) 0.4 (0.0-1.0) % Lymph # (Auto) 3.71 (1.10-4.50) K/mm3 [place] # (Auto) 0.58 (0.10-0.90) K/mm3 Eos # (Auto) 0.17 (0.02-0.50) K/mm3 Baso # (Auto) 0.04 (0.00-0.10) K/mm3 Abs Immat Gran (auto) 0.03 H (0.00-0.00) K/mm3 Absolute Neuts (auto) 5.66 (1.70-7.20) K/mm3 Absolute Nucleated RBC 0.00 (0.00-0.00) K/mm3 Nucleated RBC % 0.0 (0-0.0) % Sodium 139 (136-145) mmol/L Potassium 3.4 L (3.5-5.1) mmol/L Chloride 104 (98-108) mmol/L Carbon Dioxide 29 (21-32) mmol/L Anion Gap 6 (4-12) mmol/L BUN 9 (7-18) mg/dL Creatinine 0.74 (0.55-1.02) mg/dL Estim Creat Clear Calc 122 ml/min Estimated GFR > 60 (59 - ) Glucose 125 H (70-99) mg/dL Calculated Osmolality 287 (285-295) mOsm/kg Calcium 8.6 (8.5-10.1) mg/dL Total Bilirubin 0.1 (0.00-1.00) mg/dL AST 16 (15-37) U/L ALT 37 (14-59) U/L Alkaline Phosphatase 94 (46-116) U/L Troponin I < 4.0 (0.00-60.4) ng/L Total Protein 7.0 (6.4-8.2) g/dL Albumin 3.4 (3.4-5.0) g/dL Imaging Data Radiologist's impression: CHEST X-RAY SHOWED NO ACUTE ABNORMALITIES ECG Data EKG #1: Attestation: I personally reviewed and interpreted this ECG as follows: ECG completion date: 09/14/24 ECG completion time: 20:30 Interpretation: NORMAL SINUS RHYTHM AT 87 BEATS PER MINUTE, NORMAL EKG Critical Care Time Critical Care Time Critical Care Time: No Discharge Plan Discharge Clinical Impression: Chest pain, Dizziness Patient Disposition: Home, Self-Care Condition: Improved Instructions: Anxiety (ED) Additional Instructions: RETURN IF SYMPTOMS ARE WORSENING , CALL YOUR FAMILY PHYSICIAN FOR APPOINTMENT, TAKE TYLENOL NEEDED FOR ACHES AND PAIN, CONTINUE HOME MEDICATIONS. Patient Language: Thai Prescriptions: No Action naproxen 500 mg tablet 500 mg PO BID PRN (Reason: pain) Qty: 14 0RF cyclobenzaprine 5 mg tablet 5 mg PO TID Qty: 20 0RF lisinopril 10 mg tablet 10 mg PO DAILY aripiprazole [Abilify] 10 mg tablet 10 mg PO DAILY albuterol sulfate [ProAir HFA] 90 mcg/actuation HFA aerosol inhaler 2 puff inhalation QID PRN (Reason: shortness of breath or wheezing) Qty: 6.7 0RF diclofenac sodium 50 mg tablet,delayed release (DR/EC) 50 mg PO Q12H PRN (Reason: pain) Qty: 20 0RF Follow-up/Referrals: UNKNOWN,DOCTOR [Non-Staff] - Quality HEART score for chest pain patients History: slightly suspicious ECG: normal Age: < or = to 45 years Risk factors: 1 or 2 risk factors Troponin: < or = to 1x normal limit Heart score: 1
--- NOTE | 2024-09-14 20:14 | ECG_ITS ---
Test Date: 2024-09-14 20:09:14 Measurements Intervals [place] Rate: 87 P: 35 WV: 163 QRS: 10 QRSD: 105 T: 12 QT: 347 QTc: 419 Interpretive Statements SINUS RHYTHM Compared to ECG 04/12/2024 12:41:56 Sinus tachycardia no longer present Ventricular premature complex(es) no longer present Electronically Signed On 09-15-2024 16:22:48 CDT by Tanaj Alfaro M.D.
[2024-09-14] MEDS: LORazepam (*CRX) 1 MG TABLET PO (20:25)
--- NOTE | 2024-09-14 20:28 | PC.NURSE ---
patient medicated, see ALEJANDRA. RN provided patient with applesauce as she stated she would have a difficult time swallowing the pill. visitor at bedside. call light within reach.
[2024-09-14 20:29] LABS: Basophils Absolute Auto 0.04 K/mm3 (0.00-0.10); Basophils Percent Auto 0.4 % (0.0-1.0); Eosinophils Absolute Auto 0.17 K/mm3 (0.02-0.50); Eosinophils Percent Auto 1.7 % (1.0-6.0); Hemoglobin 13.9 g/dL (12.0-15.0); Immature Granulocyte Absolute 0.03 K/mm3 (0.00-0.00); Immature Granulocyte Percent A 0.3 % (0.0-0.0); Lymphocytes Absolute Auto 3.71 K/mm3 (1.10-4.50); Lymphocytes Percent Auto 36.4 % (18.0-42.0); Mean Corpuscular HGB Conc 33.1 g/dL (32-36); Mean Corpuscular Hemoglobin 30.3 pg (27.0-31.0); Mean Corpuscular Volume 91.7 fL (78.0-102.0); Mean Platelet Volume 9.4 fl (9.2-11.8); Monocytes Absolute Auto 0.58 K/mm3 (0.10-0.90); Monocytes Percent Auto 5.7 % (2.0-11.0); Neutrophils Absolute Auto 5.66 K/mm3 (1.70-7.20); Neutrophils Percent Auto 55.5 % (50.0-70.0); Platelet Count Result 324 K/mm3 (150-420); Red Blood Count 4.58 M/mm3 (4.20-5.40); Red Cell Distribution Width 11.9 % (11.6-14.4); White Blood Count 10.2 K/mm3 (4.8-10.8)
--- OUTSIDE RECORDS SUMMARY | 2024-09-14 20:31 | XMS_ITS | Encounter Summary ---
Author Organization [facility] Address [address] [place] [address] Care Team Providers Care Cylinder Steamer Name Role Phone Deng Coffman Primary Care Provider [phone] Paul Jasso MD Primary Care Provider [phone] Sergo Mckeon MD Primary Care Provider [phone] Encounter Details Date Type Department Care Team (Late st Contact Info) Description 12/06/2018 Abstract SFL CONVERSION [address] [place] [address] , Generic Conversion, Social History Tobacco Use Types Packs/Day Years Used Date Smoking Tobacco: Never Assessed Comments Unknown Sex and Gender Information Value Date Recorded Sex Assigned at Not on file Legal Sex Female 10:42 PM PCT Gender Identity Not on file Sexual Orientation Not on file documented as of this encounter Plan of Treatment Not on file documented as of this encounter Visit Diagnoses Not on filedocumented in this encounter Care Teams Cylinder Steamer Relationship Specialty Start Date End Date Deng Coffman PA [address] [place] [phone] PCP - General PHYSICIAN INSPECTOR RADAR AND ELECTRONICS 11/09/19 04/17/20 Paul Jasso MD [address] [place] [phone] PCP - General FAMILY PRACTICE 04/18/20 05/23/21 Sergo Mckeon MD [address] [place] [phone] PCP - General FAMILY PRACTICE 05/24/21 documented as of this encounter
--- OUTSIDE RECORDS SUMMARY | 2024-09-14 20:31 | XMS_ITS | Continuity of Care Document ---
Author Organization [facility] ices Address [address] [place] [address] Phone Care Team Providers Care Tailer Off Name Role Phone Zenaida De La Rosa [...] - Active Procedures Procedure Date OFFICE/OUTPATIENT VISIT, [facility] Advance Directives Directive Yes / No Effective Date File Name No Information Encounters Encounter Description Practice Location Reason(s) For Visit Diagnoses Date Provider Providers Copied on Encounter OFFICE/OUTPAT IENT VISIT, [facility], [address] [place] [address], [facility], tel:[phone] [place] TEST (chief complaint) Negative test Rj Estevez. [address] [place] [address], [facility], . tel:[phone] Family History Family Member Type Diagnosis Age [...] Infor luz maria Recommend follow up with OB-INFO PRINT PRESS OPERATOR for further concerns about becoming . Follow up with PCP regarding elevated PHQ-9. Denies SI/ HI today. Related to Negative test Assessments Type Assessment Date assessment Negative test 021 impression In office test negativ e. Mental Status Date Cognitive Assessment Orientation - [place] ed to time, place, person, situation. Patient Care Teams Name Effective Dates (start - stop) Status Members No Information
--- OUTSIDE RECORDS SUMMARY | 2024-09-14 20:31 | XMS_ITS | Clinical Summary ---
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 Gender Identity Not on file Sexual Orientation [...] this topic Medical Devices Implanted Type Area Audit Machine Operator Device Identifier Shelf Expiration Date Model / Serial / Lot Ti Lateral Entry Femoral Recon Nail Implanted:Qty: 1 on 03/16/2019 by Sid Delcid MD at [facility] Right: Leg SYNTHES 05/30/2022 04.003.352S / / [id number] Screw Synthes 5.0 Ti Locking W/T25 Star 62mm - [id number] Implanted:Qty: 1 on 03/16/2019 by Sid Delcid MD at [facility] Right: Leg SYNTHES 05/30/2026 04.005.552S / / [id number] 5.0mm Ti Locking Screw Implanted:Qty: 1 on 03/16/2019 by Sid Delcid MD at [facility] Right: Leg SYNTHES 06/30/2026 04.005.530S / / [id number] 5.0mm Ti Locking Screw Implanted:Qty: 1 on 03/16/2019 by Sid Delcid MD at [facility] Right: Leg SYNTHES 09/29/2027 04.005.532S / / [id number] Explanted Type Area Audit Machine Operator Device Identifier Shelf Expiration Date Model / Serial / Lot Reaming Abiodun With Ball Explanted:Qty: 1 on 03/16/2019 by Sid Delcid MD at [facility] Right: Leg SYNTHES 10/29/2027 351.706S / / [id number] 3.2mm Guide Pin Explanted:Qty: 3 on 03/16/2019 by Sid Delcid MD at [facility] Right: Leg SYNTHES 357.399 / / Drill Bit Synthes 4.2mm 3 Fluted 145mm Qc - [id number] Explanted:Qty: 1 on 03/16/2019 by Sid Delcid MD at [facility] Right: Leg SYNTHES 03.010.104 / / Drill Bit Synthes 4.2mm Qc Three-Fluted 330mm/100mm Calibration - [id number] Explanted:Qty: 1 on 03/16/2019 at [facility] Right: Leg SYNTHES 03.010.061 / / Insurance [employer] Advance Directives * Full Code (Latest Code Status on File) Date Activated Date Inactivated Comments 03/15/2019 4:36 PM 03/18/2019 8:41 PM Care Teams Costing Analyst Relationship Specialty Start Date End Date Sergo Mckeon MD [address] [place] [phone] PCP - General FAMILY PRACTICE 05/24/21
[2024-09-14 20:49] LABS: Alanine Aminotransferase 37 U/L (14-59); Albumin Level 3.4 g/dL (3.4-5.0); Alkaline Phosphatase 94 U/L (46-116); Anion Gap 6 mmol/L (4-12); Aspartate Amino Transferase 16 U/L (15-37); Bilirubin,Total 0.1 mg/dL (0.00-1.00); Blood Urea Nitrogen 9 mg/dL (7-18); Calcium 8.6 mg/dL (8.5-10.1); Carbon Dioxide 29 mmol/L (21-32); Chloride 104 mmol/L (98-108); Estimated CRCL calculation 122 ml/min; Estimated Glomerular Filt Rate > 60; Glucose 125 mg/dL (70-99); Osmolality Calculated 287 mOsm/kg (285-295); Potassium 3.4 mmol/L (3.5-5.1); Sodium 139 mmol/L (136-145)
[2024-09-14 20:50] LABS: Troponin I < 4.0 ng/L (0.00-60.4)
== END 2024-09-14 21:19 | disposition home or self-care (01) ==
PROVIDERS: Emergency Provider Emergency Medicine; PCP Physician Assistant
DX: R07.9 Chest pain, unspecified (principal); R42 Dizziness and giddiness; I10 Essential (primary) hypertension; F41.8 Other specified anxiety disorders; F20.9 Schizophrenia, unspecified
CPT/HCPCS: 36415; 71045; 80053; 84484; 85025; 93005; 99284; A9270

== ENCOUNTER 2025-04-19 19:15 | Emergency (ER) | payer OTHER, SELFPAY ==
--- NOTE | ~2025-04-19 | XR_ITS ---
[id number] INDICATION: neck pain for 2 weeks, no trauma COMPARISON: None TECHNIQUE: AP, lateral and oblique as well as open mouth odontoid views of the cervical spine were obtained. FINDINGS: The examination demonstrates normal cervical height and alignment. No compression fractures or wedging is noted. The paravertebral soft tissues are unremarkable. The disc space are maintained without significant degenerative changes. IMPRESSION: No acute fracture or subluxation. Reviewed, dictated and finalized at location S.
[2025-04-19 19:15] VITALS: BP 132/72; PULSE 98; RESP 16; TEMP 36.1; O2SAT 96
--- NOTE | 2025-04-19 19:37 | ED.GENADULT ---
HPI - General Adult General Chief complaint: Neck Pain/Injury Stated complaint: neck pain Time Seen by Provider: 04/19/25 19:20 History of Present Illness HPI narrative: Sravanthi is a 24F with a PMH of obesity, HTN, schizophrenia that presented to the ED with 2 weeks of right sided neck pain and pain in the trapezius. No trauma or inciting event. No pain radiates to the arms. No weakness. Related Data Home Medications ?Medication ?Instructions ?Recorded ?Confirmed ?Last Taken ?Type lisinopril 10 mg tablet 10 mg PO DAILY 11/05/19 07/04/23 11/19/22 History aripiprazole 10 mg tablet (Abilify) 10 mg PO DAILY 07/10/22 07/04/23 11/19/22 History risperidone 3 mg tablet mg 04/19/25 Unknown History risperidone 4 mg tablet mg 04/19/25 Unknown History Allergies Allergy/AdvReac Type Severity Reaction Status Date / Time Penicillins Allergy Unknown Hives Verified 04/19/25 19:33 Review of Systems Review of Systems: All systems reviewed & are unremarkable except as noted in HPI and below PMFSH Past Medical History Medical History Schizophrenia Morbid obesity Hypertension Surgical History Surgical History History of orthopedic surgery femur following fracture History of bilateral tubal ligation Family History Family History Other Family history of arthritis Hypertension Social History Social History Smoking status: Never smoker Exam Const: General: cooperative, healthy appearing, comfortable, no acute distress, well developed, alert, awake and Physically active Orientation/consciousness: oriented to person, oriented to place and oriented to time HENMT: Head: normal to inspection, normocephalic and atraumatic Ears: hearing grossly normal bilaterally and external ears normal Face/Nose/Sinus: Normal external nose present Other: hypertonic paraspinal musculature on the right side of neck and spasm in the right trapezius Eyes: General: appearance normal, both eyes and all related structures Periorbital: periorbital findings normal Sclera: sclerae normal Pupils: Equal, round and reactive pupils present Neck: Neck: normal visual inspection Chest: Chest palpation & inspection: normal inspection of the chest Resp: Effort & Inspection: normal respiratory effort, able to speak in complete sentences and no respiratory distress Skin: General skin exam: normal color and no rashes or lesions noted Neuro: General: oriented to person, oriented to place and oriented to time Cranial nerves: Yes Equal, round and reactive pupils present Extrem: General: normal to inspection Course Course Emergency Course: Ordered Tramadol (she cannot take pills) [id number] INDICATION: neck pain for 2 weeks, no trauma COMPARISON: None TECHNIQUE: AP, lateral and oblique as well as open mouth odontoid views of the cervical spine were obtained. FINDINGS: The examination demonstrates normal cervical height and alignment. No compression fractures or wedging is noted. The paravertebral soft tissues are unremarkable. The disc space are maintained without significant degenerative changes. IMPRESSION: No acute fracture or subluxation. Vital Signs Vital signs: Vital Signs Temperature 96.9 F L 04/19/25 19:15 Pulse Rate 98 04/19/25 19:15 Respiratory Rate 16 04/19/25 19:15 Blood Pressure 132/72 04/19/25 19:15 Pulse Oximetry 96 04/19/25 19:15 Oxygen Delivery Room Air 04/19/25 19:15 Temperature 96.9 F L 04/19/25 19:15 Pulse Rate 98 04/19/25 19:15 Respiratory Rate 16 04/19/25 19:15 Blood Pressure 132/72 04/19/25 19:15 Pulse Oximetry 96 04/19/25 19:15 Oxygen Delivery Room Air 04/19/25 19:15 Medical Decision Making Vital Signs Vital Signs: Vital Signs Temperature 96.9 F L 04/19/25 19:15 Pulse Rate 98 04/19/25 19:15 Respiratory Rate 16 04/19/25 19:15 Blood Pressure 132/72 04/19/25 19:15 Pulse Oximetry 96 04/19/25 19:15 Oxygen Delivery Room Air 04/19/25 19:15 Temperature 96.9 F L 04/19/25 19:15 Pulse Rate 98 04/19/25 19:15 Respiratory Rate 16 04/19/25 19:15 Blood Pressure 132/72 04/19/25 19:15 Pulse Oximetry 96 04/19/25 19:15 Oxygen Delivery Room Air 04/19/25 19:15 Discharge Plan Discharge Clinical Impression: Muscle spasms of neck Patient Disposition: Home Condition: Stable Instructions: Cervical Sprain (ED) Patient Language: [place] Prescriptions: No Action naproxen 500 mg tablet 500 mg PO BID PRN (Reason: pain) Qty: 14 0RF cyclobenzaprine 5 mg tablet 5 mg PO TID Qty: 20 0RF lisinopril 10 mg tablet 10 mg PO DAILY aripiprazole [Abilify] 10 mg tablet 10 mg PO DAILY albuterol sulfate [ProAir HFA] 90 mcg/actuation HFA aerosol inhaler 2 puff inhalation QID PRN (Reason: shortness of breath or wheezing) Qty: 6.7 0RF diclofenac sodium 50 mg tablet,delayed release (DR/EC) 50 mg PO Q12H PRN (Reason: pain) Qty: 20 0RF risperidone 4 mg tablet risperidone 3 mg tablet Follow-up/Referrals: Augustus,SIMEON Vilchis [Primary Care Provider]
--- OUTSIDE RECORDS SUMMARY | 2025-04-19 19:40 | XMS_ITS | Encounter Summary ---
Author Organization [facility] Address [address] [place] [id number] Care Team Providers Care Planning Analyst Name Role Phone Deng Coffman Primary Care Provider [phone] Paul Jasso MD Primary Care Provider [phone] Sergo Mckeon MD Primary Care Provider [phone] Encounter Details Date Type Department Care Team (Late st Contact Info) Description 12/06/2018 Abstract SFL CONVERSION [address] [place] [address] , Generic Conversion, Social History Tobacco Use Types Packs/Day Years Used Date Smoking Tobacco: Never Assessed Comments Unknown Sex and Gender Information Value Date Recorded Sex Assigned at Not on file Legal Sex Female 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 Gender Identity Not on file Sexual Orientation Not on file documented as of this encounter Plan of Treatment Not on file documented as of this encounter Visit Diagnoses Not on filedocumented in this encounter Care Teams Planning Analyst Relationship Specialty Start Date End Date Deng Coffman PA [address] [place] [phone] PCP - General PHYSICIAN SLAB STRIPPER 11/09/19 04/17/20 Paul Jasso MD [address] [place] [phone] PCP - General FAMILY PRACTICE 04/18/20 05/23/21 Sergo Mckeon MD [address] [place] [phone] PCP - General FAMILY PRACTICE 05/24/21 documented as of this encounter
--- NOTE | 2025-04-19 19:49 | PC.NURSE ---
pt to bathroom, urine specimen obtained if ordered by ERP. Pt then to imaging via wheelchair per trade union official.
[2025-04-19] MEDS: KETOROLAC 30 MG/ML VIAL (*BKC) IM (20:32)
--- NOTE | 2025-04-19 20:39 | PC.NURSE ---
pt checked, denies needs. medicated per order, see MAR. pt without acute distress, resting comfortably on stretcher with visitor at bedside.
== END 2025-04-19 20:43 | disposition home or self-care (01) ==
PROVIDERS: Emergency Provider Family Medicine; PCP Physician Assistant
DX: M62.830 Muscle spasm of back (principal); I10 Essential (primary) hypertension; Z79.899 Other long term (current) drug therapy
CPT/HCPCS: 72040; 96372; 99283; J1885